=== PATIENT | female | born 1955 | race African-American/Black ===

== ENCOUNTER 2021-12-06 15:01 | Outpatient (CLI) | payer OTHER, SELFPAY ==
--- NOTE | ~2021-12-06 | CT_ITS ---
EXAMINATION: CT IAC/mastoids BI wo con DATE: 12/06/2021 15:35 INDICATION: Cholesteatoma of right external ear. TECHNIQUE: Computed tomography (CT) of the temporal bones was performed without intravenous contrast. Automated exposure control and iterative reconstruction technique were employed. The dose-length pro duct was 191.29 mGy-cm. COMPARISON: None FINDINGS: RIGHT TEMPORAL BONE: The internal auditory canal, cochlea, vestibule, semicircular canals, vestibular aqueduct, ossicles, carotid canal, jugular bulb, facial nerve course, Prussak space, scutum, tympanic membrane, and masto id air cells are normal. At the posterior inferior aspect of right external auditory canal, there is a 5 x 5 x 2 mm mass of soft tissue with erosion of the adjacent bone. LEFT TEMPORAL BONE: The internal auditory canal, cochlea, vestibule, semicircular canals, vestibular aqueduct, ossicles, facial nerve course, carotid canal, jugular bulb, Prussak space, scutum, tympanic membrane, mastoid a ir cells, and external auditory canal are normal. IMPRESSION: 1. Soft tissue at the posterior inferior aspect of right external auditory canal with erosion of the adjacent bone, which may be a cholesteatoma. Reviewed, dictated and finalized at location A. IMPRESSION: 1. Soft tissue at the posterior inferior aspect of right external auditory rody l with erosion of the adjacent bone, which may be a cholesteatoma.
== END 2021-12-06 15:02 | disposition home or self-care (01) ==
PROVIDERS: Visit Provider Otolaryngology
DX: H60.41 Cholesteatoma of right external ear (principal); R93.0 Abnormal findings on diagnostic imaging of skull and head, not elsewhere classified
CPT/HCPCS: 70480